=== PATIENT | male | born 1990 | race American Indian/Alaskan Native ===

== ENCOUNTER 2020-01-02 10:02 | Emergency (ER) | payer SELFPAY ==
--- NOTE | 2020-01-02 10:14 | Emergency Department Report ---
ED Abdominal Pain HPI - General Chief Complaint: Nausea/Vomiting/Diarrhea Stated Complaint: VOMITTING PUI?: No Time Seen by Provider: 01/02/20 10:11 Source: patient Mode of arrival: Ambulatory Limitations: No Limitations - History of Present Illness Initial Comments: Patient is a 29-year-old -Malaysian male comes to the ER today complaining of a several day history of nausea and vomiting associated with some diarrhea. He thought maybe that he ate something bad but the problems have persisted for several days so his mother sent him to the emergency room. Patient endorses daily alcohol use and he thinks that his vomiting could be related to something that he ate or his alcohol use. Patient denies any abdominal pain or back pain. He denies any dysuria or difficulty urinating. He denies dysuria. Patient states that he has had nausea and vomiting at home. However, on arrival to the ER is drinking water without nausea and vomiting. He states that he has been having some loose stools. Denies fever or chills. Denies cough. Denies shortness of breath. Denies chest pain. Denies recent travel. Denies COVID exposure Past medical history none -: Gradual, days(s) Improves With: eating Context: possible food poisoning, other (Alcohol) Associated Symptoms: nausea, diarrhea. denies: vomiting, fever, chills, constipation, dysuria, hematemesis, hematochezia, melena, hematuria, anorexia, syncope - Related Data Previous Rx's Medication Instructions Recorded Last Taken Type Ondansetron [Zofran Odt] 4 mg PO Q8HR PRN #10 tab.rapdis 01/02/20 Unknown Rx Allergies Allergy/AdvReac Type Severity Reaction Status Date / Time No Known Allergies Allergy Unverified 01/02/20 10:05 ED Review of Systems ROS: Stated complaint: VOMITTING Other details as noted in HPI Comment: All other systems reviewed and negative ED Past Medical Hx - Past Medical History Previous Medical History?: No - Surgical History Past Surgical History?: No - Family History Family history: no significant - Social History Smoking Status: Never Smoker Substance Use Type: Alcohol - Medications Home Medications: Home Medications Medication Instructions Recorded Confirmed Last Taken Type Ondansetron [Zofran Odt] 4 mg PO Q8HR PRN #10 tab.rapdis 01/02/20 Unknown Rx ED Physical Exam - General Limitations: No Limitations General appearance: alert, in no apparent distress - Head Head exam: Present: atraumatic, normocephalic - Eye Eye exam: Present: normal appearance - ENT ENT exam: Present: mucous membranes moist - Neck Neck exam: Present: normal inspection - Respiratory Respiratory exam: Present: normal lung sounds bilaterally. Absent: respiratory distress - Cardiovascular Cardiovascular Exam: Present: regular rate, normal rhythm. Absent: systolic murmur, diastolic murmur, rubs, gallop - GI/Abdominal GI/Abdominal exam: Present: soft, normal bowel sounds - Rectal Rectal exam: Present: deferred - Extremities Exam Extremities exam: Present: normal inspection - Back Exam Back exam: Present: normal inspection - Neurological Exam Neurological exam: Present: alert, oriented X3 - Psychiatric Psychiatric exam: Present: normal affect, normal mood - Skin Skin exam: Present: warm, dry, intact, normal color. Absent: rash ED Course Vital Signs 01/02/20 10:05 Temperature 98.1 F Pulse Rate 70 Respiratory 20 Rate Blood Pressure 148/94 O2 Sat by Pulse 97 Oximetry ED Medical Decision Making - Lab Data Result diagrams: 01/02/20 10:14 01/02/20 10:14 - Radiology Data Radiology results: report reviewed, image reviewed [facility] - Medical Decision Making Labs 01/02/20 01/02/20 10:14 10:14 WBC 3.9 L RBC 5.51 H Hgb 17.1 H Hct 50.5 H MCV 92 MCH 31 MCHC 34 RDW 13.1 L Plt Count 278 Lymph % (Auto) 25.9 [place] % (Auto) 14.8 H Eos % (Auto) 6.5 H Baso % (Auto) 0.9 Lymph # 1.0 L [place] # 0.6 Eos # 0.3 Baso # 0.0 Seg Neutrophils % 51.9 Seg Neutrophils # 2.0 Sodium 132 L Potassium 3.5 L Chloride 92.3 L Carbon Dioxide 26 Anion Gap 17 BUN 9 Creatinine 1.2 Estimated GFR > 60 BUN/Creatinine Ratio 8 Glucose 103 H Calcium 9.8 Total Bilirubin 1.10 AST 28 ALT 18 Alkaline Phosphatase 63 Total Protein 7.8 Albumin 4.9 Albumin/Globulin Ratio 1.7 Lipase 16 Vital Signs (72 hours) 01/02/20 10:05 Temperature 98.1 F Pulse Rate 70 Respiratory 20 Rate Blood Pressure 148/94 O2 Sat by Pulse 97 Oximetry ns/zofran taking po on dc labs noted xray noted dc home with dc poc; verbalizes understanding - Differential Diagnosis gastrenteritis/etoh related n/v; atypical covid Critical care attestation.: If time is entered above; I have spent that time in minutes in the direct care of this critically ill patient, excluding procedure time. ED Disposition Clinical Impression: Gastroenteritis, Hypokalemia, Alcohol use Disposition: DC-01 TO HOME OR SELFCARE Is pt being admited?: No Does the pt Need Aspirin: No Condition: Stable Instructions: Acute Nausea and Vomiting (ED) Additional Instructions: avoid alcohol med as ordered for nausea stay well hydrated with water follow up with pcp on Monday referral below good hand washing Prescriptions: Ondansetron [Zofran Odt] 4 mg PO Q8HR PRN #10 tab.rapdis PRN Reason: Vomiting Referrals: PRIMARY CARE, [Primary Care Provider] - 3-5 Days GAYE PANTOJA MD [Staff Physician] - 3-5 Days Time of Disposition: 10:29
[2020-01-02] MEDS ORDERED: SODIUM CHLORIDE 0.9% 1000 ML 1,000 ML IV ONE (10:19)
[2020-01-02] MEDS ORDERED: ONDANSETRON 4 MG/2 ML INJ IV ONE (10:19)
[2020-01-02 10:31] LABS: Basophils % (Auto) 0.9 % (0.0-1.8); Eosinophils # (Auto) 0.3 K/mm3 (0.0-0.4); Eosinophils % (Auto) 6.5 % (0.0-4.3); Hematocrit 50.5 % (35.5-45.6); Hemoglobin 17.1 gm/dl (11.8-15.2); Lymphocytes % (Auto) 25.9 % (13.4-35.0); Mean Corpuscular HGB Conc 34 % (32-34); Mean Corpuscular Volume 92 fl (84-94); Monocytes # (Auto) 0.6 K/mm3 (0.0-0.8); Monocytes % (Auto) 14.8 % (0.0-7.3); Platelet Count 278 K/mm3 (140-440); Red Blood Count 5.51 M/mm3 (3.65-5.03); Red Cell Distribution Width 13.1 % (13.2-15.2)
[2020-01-02 10:50] LABS: Alanine Aminotransferase 18 units/L (7-56); Albumin 4.9 g/dL (3.9-5); BUN/Creatinine Ratio 8; Blood Urea Nitrogen 9 mg/dL (9-20); Calcium 9.8 mg/dL (8.4-10.2); Hemolysis Index 5
[2020-01-02] MEDS ORDERED: POTASSIUM CHLORIDE ER 20 MEQ TAB PO ONE (10:51)
--- NOTE | 2020-01-02 11:04 | XRay Report ---
ACUTE ABDOMINAL SERIES INDICATION / CLINICAL INFORMATION: Nausea, vomiting and diarrhea for 3 days. COMPARISON: None available. FINDINGS: Upright and supine views of the abdomen demonstrate multiple small air-fluid levels in the right and transverse colon as well as in the distal small bowel. There is no evidence of bowel dilatation, free air or mass effect. No abnormal calcification is seen. The accompanying chest radiograph demonstrates a normal heart size and clear lungs. IMPRESSION: Scattered air-fluid levels in the colon and distal small bowel without evidence of bowel obstruction. The findings may be related to a low-grade enterocolitis. Other causes of diarrhea could also have this appearance. Signer Name: Hardik Martinez MD Signed: 01/02/2020 11:00 AM Workstation Name: [id number]
[2020-01-02 11:59] VITALS: BP 141/90
== END 2020-01-02 12:00 | disposition home or self-care (01) ==
LOC: ED 10:02
DX: K52.9 Noninfective gastroenteritis and colitis, unspecified (principal); E87.6 Hypokalemia; R11.2 Nausea with vomiting, unspecified; Z72.89 Other problems related to lifestyle; Z79.899 Other long term (current) drug therapy
CPT/HCPCS: 36415; 74022; 80053; 83690; 85025; 96361; 96374; 99284; J2405; J7030

== ENCOUNTER 2022-03-28 10:13 | Emergency (ER) | payer SELFPAY ==
[2022-03-28] MEDS ORDERED: TETANUS,DIPH,PERTUSS(ACELL) VACCINE 0.5 ML SYRINGE IM ONE ×2 (10:34→17:30)
[2022-03-28] MEDS ORDERED: oxyCODONE /ACETAMINOPHEN 5-325MG TAB PO ONE ×2 (10:34→18:00)
[2022-03-28] MEDS ORDERED: CYCLOBENZAPRINE 10 MG TAB PO ONE ×2 (10:34→18:00)
[2022-03-28] MEDS ORDERED: KETOROLAC 10 MG TAB PO ONE ×3 (10:34→18:00)
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
[2022-03-28 17:59] VITALS: BP 163/96
== END 2022-03-28 17:58 | disposition home or self-care (01) ==
LOC: ED 10:13
DX: S00.81XA Abrasion of other part of head, initial encounter (principal); S50.812A Abrasion of left forearm, initial encounter; M79.631 Pain in right forearm; M54.2 Cervicalgia; V89.2XXA Person injured in unspecified motor-vehicle accident, traffic, initial encounter; Y93.89 Activity, other specified; Y92.89 Other specified places as the place of occurrence of the external cause; Y99.8 Other external cause status
CPT/HCPCS: 70450; 72125; 90471; 90715; 99284